=== PATIENT | male | born 1985 | race Caucasian/White ===

== ENCOUNTER 2024-02-17 11:38 | Inpatient (IN) | payer OTHER, SELFPAY ==
[~2024-02-17] VITALS: Ht 172.7 cm; Wt 100.0 kg
[~2024-02-17 11:38] MED LIST: UNRESOLVED CLARIFICATION ENTRY XX SCH
[2024-02-17 17:00] VITALS: BP 119/71; TEMP 97.5; O2SAT 99
[2024-02-17 17:40] LABS: HEMATOCRIT 45.2 % (42.0-52.0); HEMOGLOBIN 15.6 g/dl (13.5-17.5); MEAN CORPUSCULAR HGB CONC 34.5 g/dl (32.0-36.5); MEAN CORPUSCULAR VOLUME 86.9 fl (80.0-96.0); PLATELET COUNT, AUTOMATED 249 10^3/uL (150-450); WHITE BLOOD COUNT 7.7 10^3/uL (4.0-10.0)
[2024-02-17] MEDS ORDERED: VANCOMYCIN HCL 1,000 MG, VIAL MATE ADAPTER 1 EACH in NS 250 ML IV SCH (17:40)
[2024-02-17] MEDS ORDERED: CLINDAMYCIN 300 MG in IV 1 EA IV SCH (17:40)
[2024-02-17 17:53] LABS: C REACTIVE PROTEIN QUANTITATIV < 0.50 MG/DL (<1.0)
[2024-02-17 17:55] LABS: INR 0.89; PROTHROMBIN TIME 12.4 SECONDS (12.5-14.5)
[2024-02-17 17:56] LABS: ALBUMIN 4.4 G/DL (3.2-5.2); ALKALINE PHOSPHATASE 76 U/L (40-129); ALT/SGPT 45 U/L (7.0-40); AST/SGOT 15 U/L (<34); BILIRUBIN,TOTAL 0.3 MG/DL (0.3-1.2); BLOOD UREA NITROGEN 24 MG/DL (9-23); CALCIUM LEVEL 10.2 MG/DL (8.5-10.1); CARBON DIOXIDE LEVEL 25 MMOL/L (20-31); CHLORIDE LEVEL 105 MMOL/L (98-107); CREATININE FOR GFR 1.13 MG/DL (0.70-1.30); GLOMERULAR FILTRATION RATE > 60.0 (>60); GLUCOSE, FASTING 85 MG/DL (60-100); POTASSIUM SERUM 4.6 MMOL/L (3.5-5.1); SODIUM LEVEL 140 MMOL/L (136-145); TOTAL PROTEIN 7.5 G/DL (5.7-8.2)
[2024-02-17] MEDS ORDERED: DOXY100T PO (18:00)
[2024-02-17] MEDS ORDERED: HOME MED LIST COMPLETE! XX SCH (18:00)
[2024-02-17] MEDS ORDERED: ZOLO100T PO (18:00)
[2024-02-17] MEDS ORDERED: OMEP-173 PO (18:00)
[2024-02-17] MEDS ORDERED: TOPI-21 PO (18:00)
[2024-02-17] MEDS ORDERED: AMPH1TAB2 PO (18:00)
[2024-02-17] MEDS: LACTOBACILLUS ACIDOPHILUS CAP (BACID) PO SCH (18:20)
[2024-02-17] MEDS: IBUPROFEN 800 MG TAB PO PRN (18:21)
[2024-02-17 21:34] VITALS: BP 124/72; TEMP 97
[2024-02-17] MEDS: VANCOMYCIN HCL 2,000 MG, VIAL MATE ADAPTER 1 EACH in NS 500 ML IV ONE (21:38)
[2024-02-17 22:00] VITALS: BP 124/72; TEMP 97.7
[2024-02-17 22:40] LABS: URIC ACID 3.7 MG/DL (3.7-9.2)
[2024-02-17 22:49] LABS: ERYTHROCYTE SEDIMENTATION RATE 5 mm/hr (0-15)
[2024-02-18] VITALS: BP 124/72; TEMP 97.9
[2024-02-18] MEDS: CLINDAMYCIN 600 MG in IV 1 EA IV SCH (00:10)
[2024-02-18] MEDS: CETIRIZINE (ZyrTEC) 10 MG TAB PO ONE (00:55)
[2024-02-18] MEDS: methylPREDNISolone 125MG 2ML VIAL IV ONE (00:57)
[2024-02-18] MEDS: ACETAMINOPHEN *IV* 1,000 MG in IV 1 EA IV ONE (01:12)
[2024-02-18] MEDS: METHOCARBAMOL 1,000 MG/10 ML VIAL IV ONE (01:34)
[2024-02-18 05:01] VITALS: BP 108/59; TEMP 97.3
[2024-02-18 07:02] LABS: HEMATOCRIT 43.7 % (42.0-52.0); HEMOGLOBIN 15.1 g/dl (13.5-17.5); MEAN CORPUSCULAR HEMOGLOBIN 29.7 pg (27.0-33.0); MEAN CORPUSCULAR HGB CONC 34.6 g/dl (32.0-36.5); PLATELET COUNT, AUTOMATED 194 10^3/uL (150-450); RED BLOOD COUNT 5.08 10^6/uL (4.30-6.10)
[2024-02-18 07:56] LABS: BLOOD UREA NITROGEN 23 MG/DL (9-23); CALCIUM LEVEL 9.6 MG/DL (8.5-10.1); CARBON DIOXIDE LEVEL 22 MMOL/L (20-31); CHLORIDE LEVEL 107 MMOL/L (98-107); CREATININE FOR GFR 1.12 MG/DL (0.70-1.30); GLOMERULAR FILTRATION RATE > 60.0 (>60); GLUCOSE, FASTING 149 MG/DL (60-100); POTASSIUM SERUM 4.2 MMOL/L (3.5-5.1); SODIUM LEVEL 139 MMOL/L (136-145)
[2024-02-18] MEDS ORDERED: VANCOMYCIN HCL 1,000 MG, VIAL MATE ADAPTER 1 EACH in NS 250 ML IV SCH (08:00)
[2024-02-18] MEDS: CETIRIZINE (ZyrTEC) 10 MG TAB PO SCH (08:35)
[2024-02-18 11:18] LABS: C REACTIVE PROTEIN QUANTITATIV < 0.50 MG/DL (<1.0)
[2024-02-18 12:43] VITALS: BP 132/70; TEMP 97.9; O2SAT 97
[2024-02-18] MEDS: OMEPRAZOLE 20MG CAP PO SCH (13:17)
[2024-02-18] MEDS: TOPIRAMATE (TopAMAX) 25 MG TAB PO SCH (13:17)
[2024-02-18] MEDS: SERTRALINE 100 MG TAB PO SCH (13:17)
[2024-02-18] MEDS: ACETAMINOPHEN 500 MG TAB PO PRN (15:01)
[2024-02-18] MEDS: PERCOCET 5MG/325MG TAB PO PRN (21:04)
[2024-02-19] VITALS (7 sets, daily range): BP systolic 103–120; BP diastolic 61–70; TEMP 97.5–98.6; O2SAT 93–98
[2024-02-19 07:29] LABS: HEMATOCRIT 40.4 % (42.0-52.0); HEMOGLOBIN 13.7 g/dl (13.5-17.5); MEAN CORPUSCULAR HEMOGLOBIN 29.2 pg (27.0-33.0); MEAN CORPUSCULAR HGB CONC 33.9 g/dl (32.0-36.5); MEAN CORPUSCULAR VOLUME 86.1 fl (80.0-96.0); PLATELET COUNT, AUTOMATED 199 10^3/uL (150-450); RED BLOOD COUNT 4.69 10^6/uL (4.30-6.10); WHITE BLOOD COUNT 9.5 10^3/uL (4.0-10.0)
[2024-02-19 07:53] LABS: BLOOD UREA NITROGEN 24 MG/DL (9-23); C REACTIVE PROTEIN QUANTITATIV < 0.50 MG/DL (<1.0); CALCIUM LEVEL 8.9 MG/DL (8.5-10.1); CARBON DIOXIDE LEVEL 23 MMOL/L (20-31); CHLORIDE LEVEL 110 MMOL/L (98-107); CREATININE FOR GFR 1.05 MG/DL (0.70-1.30); GLOMERULAR FILTRATION RATE > 60.0 (>60); GLUCOSE, FASTING 106 MG/DL (60-100); POTASSIUM SERUM 3.8 MMOL/L (3.5-5.1); SODIUM LEVEL 141 MMOL/L (136-145)
[2024-02-19] MEDS ORDERED: LIDOCAINE 2% 100MG/5ML SDV (FOR ANES.) As Ordered ONE (17:22)
[2024-02-19] MEDS ORDERED: METOCLOPRAMIDE INJ 10MG/2ML VIAL As Ordered ONE (17:22)
[2024-02-19] MEDS ORDERED: KETOROLAC 60MG 2ML VIAL As Ordered ONE (17:22)
[2024-02-19] MEDS ORDERED: MIDAZOLAM INJ 2MG/2ML VIAL As Ordered ONE (17:22)
[2024-02-19] MEDS ORDERED: fentaNYL 100 MCG/2 ML INJECTION As Ordered ONE (17:22)
[2024-02-19] MEDS ORDERED: propofoL 200 MG/20 ML VIAL As Ordered ONE (17:22)
[2024-02-19] MEDS ORDERED: dexmedeTOMIDine (4MCG/ML)200MCG/50ML BTL (PRECEDEX) As Ordered ONE (17:22)
[2024-02-19] MEDS ORDERED: ONDANSETRON 4MG 2ML VIAL As Ordered ONE (17:22)
[2024-02-19] MEDS ORDERED: ACETAMINOPHEN 1000MG/100ML IV BAG As Ordered ONE (17:24)
[2024-02-19] MEDS ORDERED: BACITRACIN OINTMENT 30GM TUBE As Ordered ONE (17:43)
[2024-02-19] MEDS ORDERED: ONDANSETRON 4MG 2ML VIAL IV PRN (18:10)
[2024-02-19] MEDS ORDERED: fentaNYL 100 MCG/2 ML INJECTION IV PRN (18:10)
[2024-02-19] MEDS ORDERED: PROMETHAZINE 25MG/ML 1ML VIAL IV PRN (18:10)
[2024-02-19] MEDS: HYDROMORPHONE HCL 0.5 MG/ 0.5 ML SYRINGE IV PRN (18:16)
[2024-02-19] MEDS: oxyCODONE 5MG TAB PO PRN (18:17)
[2024-02-20 02:23] VITALS: BP 117/66; TEMP 97.5; O2SAT 95
[2024-02-20 06:15] VITALS: BP 121/69; TEMP 97.6; O2SAT 97
[2024-02-20 08:00] VITALS: BP 110/67; TEMP 98; O2SAT 97
[2024-02-20 08:00] LABS: HEMATOCRIT 38.7 % (42.0-52.0); HEMOGLOBIN 13.4 g/dl (13.5-17.5); MEAN CORPUSCULAR HGB CONC 34.6 g/dl (32.0-36.5); MEAN CORPUSCULAR VOLUME 86.8 fl (80.0-96.0); PLATELET COUNT, AUTOMATED 218 10^3/uL (150-450); RED BLOOD COUNT 4.46 10^6/uL (4.30-6.10); WHITE BLOOD COUNT 8.8 10^3/uL (4.0-10.0)
[2024-02-20 08:34] LABS: BLOOD UREA NITROGEN 25 MG/DL (9-23); CARBON DIOXIDE LEVEL 24 MMOL/L (20-31); CHLORIDE LEVEL 105 MMOL/L (98-107); CREATININE FOR GFR 1.08 MG/DL (0.70-1.30); GLOMERULAR FILTRATION RATE > 60.0 (>60); GLUCOSE, FASTING 108 MG/DL (60-100); SODIUM LEVEL 139 MMOL/L (136-145)
[2024-02-20] MEDS ORDERED: PERC5TAB12 PO (10:44)
[2024-02-20 12:00] VITALS: BP 127/73; TEMP 98.6; O2SAT 99
== END 2024-02-20 13:25 | disposition home or self-care (01) | DRG 351 ==
LOC: M MS5PR 16:41
PROVIDERS: ADMIT Family Medicine; ATTEND Orthopaedic Surgery Hand Surgery
PROC: 3E10X8Z Irrigation of Skin and Mucous Membranes using Irrigating Substance (ICD-10-PCS; 2024-02-19)
PROC: 0L970ZX Drainage of Right Hand Tendon, Open Approach, Diagnostic (ICD-10-PCS; principal; 2024-02-19 11:51)
DX: M65.141 Other infective (teno)synovitis, right hand (principal); L27.0 Generalized skin eruption due to drugs and medicaments taken internally; Z88.0 Allergy status to penicillin; Z88.1 Allergy status to other antibiotic agents; T36.8X5A Adverse effect of other systemic antibiotics, initial encounter

== ENCOUNTER 2024-05-01 06:00 | Day surgery (SDC) | payer OTHER ==
[~2024-05-01] VITALS: Ht 172.7 cm; Wt 101.2 kg
[~2024-05-01 06:00] MED LIST changes: +AMPH1TAB2 PO; +DOXY100T PO; +OMEP-173 PO; +OXYC-517 PO; +PERC5TAB12 PO; +RIZA10TA58 PO; +TOPI-21 PO; -UNRESOLVED CLARIFICATION ENTRY XX SCH; +ZOLO100T PO
[2024-05-01] MEDS ORDERED: LR 1,000 ML IV SCH (06:45)
[2024-05-01] MEDS ORDERED: MIDAZOLAM INJ 2MG/2ML VIAL As Ordered ONE (07:06)
[2024-05-01] MEDS ORDERED: propofoL 200 MG/20 ML VIAL As Ordered ONE (07:06)
[2024-05-01] MEDS ORDERED: LIDOCAINE 2% 100MG/5ML SDV (FOR ANES.) As Ordered ONE (07:06)
[2024-05-01] MEDS ORDERED: fentaNYL 100 MCG/2 ML INJECTION As Ordered ONE (07:07)
[2024-05-01] MEDS: ceFAZolin SODIUM 2 GM VIAL As Ordered ONE (07:51)
[2024-05-01] MEDS: BACITRACIN OINTMENT 30GM TUBE As Ordered ONE (07:55)
[2024-05-01] MEDS: CLINDAMYCIN 900MG/50ML PREMIX BAG As Ordered ONE (08:04)
[2024-05-01] MEDS ORDERED: ACETAMINOPHEN 1000MG/100ML IV BAG As Ordered ONE (08:58)
[2024-05-01] MEDS ORDERED: ONDANSETRON 4MG 2ML VIAL As Ordered ONE (08:59)
[2024-05-01] MEDS ORDERED: KETOROLAC 30 MG/ML 1ML VIAL As Ordered ONE (08:59)
[2024-05-01] MEDS ORDERED: PERC5TAB12 PO (09:15)
[2024-05-01] MEDS: diphenhydrAMINE 50MG/ML VIAL IV PRN (09:24)
[2024-05-01 09:45] VITALS: BP 151/82; TEMP 97.2; O2SAT 97
== END 2024-05-01 09:53 | disposition home or self-care (01) ==
LOC: M SDC 06:00
PROVIDERS: ATTEND Orthopaedic Surgery Hand Surgery
DX: M24.641 Ankylosis, right hand (principal); G43.909 Migraine, unspecified, not intractable, without status migrainosus; F90.9 Attention-deficit hyperactivity disorder, unspecified type; F41.9 Anxiety disorder, unspecified; Z79.899 Other long term (current) drug therapy; Z88.0 Allergy status to penicillin; Z88.1 Allergy status to other antibiotic agents; F17.220 Nicotine dependence, chewing tobacco, uncomplicated; Z79.891 Long term (current) use of opiate analgesic
CPT/HCPCS: 26525; J0131; J0665; J0737; J1100; J1200; J1885; J2250; J2405; J3010